=== PATIENT | female | born 1935 | race Caucasian/White ===

== ENCOUNTER 2016-12-05 12:34 | Emergency (ER) | payer MEDICARE ==
[~2016-12-05] VITALS: Ht 157.5 cm; Wt 150.0 kg
[~2016-12-05 12:34] MED LIST: ACET-1890 PO; MAGN400C PO; METO50TA7 PO; MULT-321 PO; QUET25TA PO; UBID1CAP52 PO; WARF2TAB7 PO
[2016-12-05 12:51] VITALS: BP 191/81; PULSE 80; RESP 20; O2SAT 97
--- NOTE | 2016-12-05 13:17 | ED.REPORT ---
HPI-Trauma Minor / Fall Date of Service Dec 05, 2016 ED Provider: Ting Rouse MD 81 year old female anticoagulated on warfarin with a history of CVA,atrial fibrillation, CAD, and HTN presents to the ER via EMS from [facility] due back pain status post mechanical ground level fall onto her carpeted floor just prior to arrival. She states that she had just grabbed some underwear out of her dresser and fell while she was transferring to her bed to get dressed. Immediately after the fall she found that she was unable to ambulate or call for help. found the patient shortly after and called EMS. Patient endorses head strike during the fall, and states that she struck her back on "something" as well, though she denies any LOC or neck pain. History of "balance problems", and she suspects this is the cause for her fall today. She is ambulatory with a walker or cane. Nursing Notes Stated Complaint: GLF Chief Complaint: Multiple Trauma/Fall Nursing Notes Reviewed: Yes Allergies: Coded Allergies: simvastatin (Verified Allergy, Severe, dizziness,ache all over, 10/14/14) Does not want any statins [place] (Verified Allergy, Mild, plugged nose and sneezing, ) Scheduled Magnesium Oxide (Magnesium) 400 Mg Capsule 400 MG PO DAILY Metoprolol Succinate ER (Toprol XL) 50 Mg Tablet.er 50 MG PO BID Multivit with Calcium,Iron,Min (Maximum Daily Multivitamin) 1 Each Tablet 1 EACH PO DAILY Ubidecarenone/Vit E Acetate (Co Q-10 100 mg Softgel) 1 Each Capsule 1 EACH PO DAILY Warfarin Sodium (Warfarin Sodium) 2 Mg Tablet 2 MG PO DAILY Scheduled PRN Acetaminophen (Tylenol) 325 Mg Tablet 325-975 MG PO Q6 PRN PRN For Pain Quetiapine Fumarate (Seroquel) 25 Mg Tablet 12.5 MG PO HS PRN PRN For Sleep General Time Seen by MD: 13:12 Chief Complaint Fall, Other (Back Pain) Hx Obtained From: Patient Arrived By: Ambulance Onset Occurred: Just prior to arrival Symptom Duration: Since onset Caused by: Accidental, Fall on ground Context: Occurred at: Home injury Associated with: Denies: Headache, Loss of consciousness, Neck pain Pertinent Negative: Pt denies other symptoms Similar Sx Previous: No Past Medical History Past Medical History Notes: Echo from july 2014 EF 60% septal wall thickening without obstructive component. Past Medical History PVD with L superficial femoral artery angioplasty Osteoarthritis with knee arthroplasty Reports: Coronary artery disease, Hypertension, Stroke Reports: Atrial fibrillation Smoking History Former Smoker Social History Other Social History: , Lives in group home Ambulatory Status Walker Review of Systems Constitutional: Denies: Chills, Fever Respiratory: Denies: Non-productive cough, Shortness of breath Musculoskeletal: Reports: Back pain, Denies: Extremity pain, Neck pain, Thoracic pain Neurologic: Denies: Change LOC, Headache, Syncope Complete sys rev & neg: except as marked. Physical Exam Initial Vital Signs Vital Signs (First) Date Time Temp Pulse Resp B/P Pulse Ox O2 Delivery O2 Flow Rate FiO2 12/05/16 12:51 36.5 80 20 191/81 97 Room Air Initial VS: Reviewed Head / Eyes: Atraumatic, Normocephalic Skin: Warm, Dry, No cyanosis Neurologic: Alert, Oriented, Nonfocal Psychiatric: Mood/affect normal, Behavior normal, Normal thought content General/Constitutional: Awake, Alert, Well developed, Well nourished Neck: Atraumatic, Supple, Full range of motion, No swelling, Non-tender, No midline vertebral tend Respiratory / Chest: Breath sounds NL, Breath sounds = bilat, No respiratory distress, No rales, No rhonchi, No wheezing, No chest tenderness, No chest wall deformity, No crepitus Cardiovascular: Heart rate NL, Regular rhythm, Heart sounds NL, Cap refill not delayed, Peripheral circulation NL Back: Atraumatic, Inspection NL, Painless range of motion, Non-tender, No midline vertebral tend, No CVA tenderness Upper Extremity / MS: Atraumatic, Inspection NL, Full range of motion, No swelling, Non-tender, No erythema, No deformity, Neurologic intact, Vascular intact Lower Extremity / Pelvis / MS: Full range of motion, Neurologic intact, Vascular intact Lower Ext Brief Normals: Hip R exam normal, Hip L exam normal Tender Left iliac and ischium. Legs are equal length. Able to lift both legs off the bed without pain. Interpretation & Diagnostics Lab Results Interpretation Result Diagram: 12/05/16 1400 12/05/16 1400 Test 12/05/16 14:00 White Blood Count 8.6th/mm3 (3.8-10.1) Red Blood Count 3.84mil/mm3 (3.90-5.20) Hemoglobin 12.0g/dL (12.0-15.6) Hematocrit 36.5% (35.0-46.0) Mean Corpuscular Volume 95.1fL (81-100) Mean Corpuscular Hemoglobin 31.3pg (27.0-35.0) Mean Corpuscular Hemoglobin Concent 32.9% (32.0-37.0) Red Cell Distribution Width 12.7% (12.3-15.4) Platelet Count 169bil/L (150-400) Neutrophils (%) (Auto) 79.0% (40-74) Lymphocytes (%) (Auto) 13.7% (14-46) Monocytes (%) (Auto) 5.5% (4-12) Eosinophils (%) (Auto) 0.9% (0-5) Basophils (%) (Auto) 0.1% (0-3) Prothrombin Time 34.3sec (8.1-12.5) Prothromb Time International Ratio 3.13ratio Sodium Level 138mEq/L (134-144) Potassium Level 4.2mEq/L (3.5-5.2) Chloride Level 101mEq/L (97-108) Carbon Dioxide Level 24mmol/L (18-29) Blood Urea Nitrogen 41mg/dL (8-27) Creatinine 1.00mg/dL (0.57-1.00) Estimat Glomerular Filtration Rate 76mL/min (>59) Glucose Level 105mg/dL (60-99) Calcium Level 9.4mg/dL (8.5-10.1) Total Bilirubin 0.4mg/dL (0.0-1.2) Aspartate Amino Transf (AST/SGOT) 22U/L (0-50) Alanine Aminotransferase (ALT/SGPT) 14U/L (0-32) Alkaline Phosphatase 72U/L (25-165) Total Protein 7.0g/dL (6.4-8.4) Albumin 3.8g/dL (3.4-5.0) X-Ray Interpretation Xray Interpretation: IMPRESSION: 1. No acute bony injuries of the left hip region. If there is persistent clinical suspicion for occult fracture, consider further evaluation with noncontrast bony pelvis MRI or CT. 2. Several calcified uterine fibroids as before. Dictated by: Nick Pozo M.D. on 12/05/2016 at 14:04 Approved by: Nick Pozo M.D. on 12/05/2016 at 14:06 X-Ray Ordered: Pelvis, Hip left Interpretation / Wet Read by: Interpret - Radiologist CT Head Interpretation IMPRESSION: 1. No acute intracranial hemorrhage. 2. Old right frontal/basal ganglia infarct with additional chronic small vessel ischemic changes. 3. Moderate parenchymal volume loss. The degree of ventricular prominence it does raise the suspicion for possible normal pressure hydrocephalus and clinical correlation is recommended. Dictated by: Blayne Mixon M.D. on 12/05/2016 at 12:55 Approved by: Blayne Mixon M.D. on 12/05/2016 at 12:58 Study: Head CT no contrast Interpretation / Wet Read by: Interpret - Radiologist Re-Eval/Medical Decision Med Decision/Clinical Course Mechanical fall earlier today. Hit her left buttock/hip and hit her head on the way down. She is anticoagulated. After evaluation in the emergency room there is some concern for pelvic ring fracture. X-rays are unremarkable. There is no spinal tenderness to suggest compression fracture. She is able to ambulate prior to discharge from the emergency room. Brain CT was done because of the head trauma and anticoagulation and there is no evidence of bleeding. Source of Hx: Old records Counseled Regarding: Diagnosis, Lab results Discharge & Departure Impression: Primary Impression: Fall Additional Impressions: Hip pain Low back pain Anticoagulated on Coumadin A-fib Ruled Out: Syncope, Compression fracture, Hip fracture Discharge Condition All VS Reviewed: Yes Condition: Stable Additional Instructions: I am so happy to report that you do not have any bleeding in your head, you do not have any compression fractures, you did not break your hip, and did not break your pelvis. You did fall and landed quite hard and you are going to be quite tender. It is okay to use Tylenol to help with this. You are already taking care to try and avoid falls, please continue. Thank you for letting me evaluate you today. Referrals: Samm Granda DO (PCP) Scribe Attestation Portions of this note were transcribed by Scott Coates. I, Dr. Rouse, personally performed the history, physical exam and medical decision-making; I reviewed and confirmed the accuracy of the information in the transcribed note. Signed by: Shaye Jo, 12/05/2016 at 15:19 copies to: Samm Granda Shawna L MD Dec 05, 2016 13:17 SCOTT COATES Dec 05, 2016 13:26
--- NOTE | 2016-12-05 13:59 | DRSVH ---
PROCEDURE: CT BRAIN WITHOUT CONTRAST ([id number]) INDICATIONS: fall, anticoagulated TECHNIQUE: Noncontrast 4.5 mm thick angled axial sections acquired from the foramen magnum to the vertex, with c oronal reformats. COMPARISON: [facility], CT, BRAIN W/O CONTRAST, 10/14/2014, 14:31. FINDINGS: Image quality: Diagnostic. Brain: There is no acute intra-axial or extra-axial hemorrhage. No extra-axial fluid collection is i dentified. There is no midline shift or mass effect. The orbits are grossly unremarkable. No large areas of diffusely decreased attenuation are evident within the brain to suggest diffuse cer ebral edema. 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 Additional areas of nonspecific white matter changes are present. The ventricles and cortical sulci are moderately prominent, particularly involving the lateral ventri cles and the 3rd ventricle. Bones: Calvarium and visualized facial bones are grossly intact. The imaged paranasal sinuses and m astoid air cells are clear. IMPRESSION: 1. No acute intracranial hemorrhage. 2. Old right frontal/basal ganglia infarct with additional chronic small vessel ischemic changes. 3. Moderate parenchymal volume loss. The degree of ventricular prominence it does raise the suspici on for possible normal pressure hydrocephalus and clinical correlation is recommended. Dictated by: Blayne Mixon M.D. on 12/05/2016 at 12:55 Approved by: Blayne Mixon M.D. on 12/05/2016 at 12:58
--- NOTE | 2016-12-05 14:07 | DRSVH ---
PROCEDURE: X-RAY PELVIS W/LAT HIP (LT) ([id number]) INDICATIONS: 81 year-old female with left hip region pain after fall. TECHNIQUE: AP pelvis with lateral view(s) of the left hip(s). COMPARISON: [facility], , HIP COMP MIN 2VW (LT), 09/07/2013, 12:53. FINDINGS: Bones: No fractures or dislocations. Pelvic ring appears intact. No suspicious bony lesions. Soft tissues: The visualized bowel gas pattern is normal. Several sizable calcified uterine fibroids are again noted. IMPRESSION: 1. No acute bony injuries of the left hip region. If there is persistent clinical suspicion for occul t fracture, consider further evaluation with noncontrast bony pelvis MRI or CT. 2. Several calcified uterine fibroids as before. Dictated by: Nick Pozo M.D. on 12/05/2016 at 14:04 Approved by: Nick Pozo M.D. on 12/05/2016 at 14:06
[2016-12-05 14:10] LABS: BASOPHILS % (AUTO) 0.1 % (0-3); EOSINOPHILS % (AUTO) 0.9 % (0-5); MONOCYTES % (AUTO) 5.5 % (4-12); Mean Corpuscular Hemoglobin 31.3 pg (27.0-35.0); Mean Corpuscular Volume 95.1 fL (81-100); Platelet Count 169 bil/L (150-400)
[2016-12-05 14:25] LABS: INR 3.13 ratio
== END 2016-12-05 17:30 | disposition home or self-care (01) ==
LOC: SED 12:34 → EDBD 12:34 → EDUNIT# 12:34 → SED 17:30
DX: M25.552 Pain in left hip (principal); M54.5 Low back pain; W18.39XA Other fall on same level, initial encounter; Y93.89 Activity, other specified; Y92.019 Unspecified place in single-family (private) house as the place of occurrence of the external cause; Y99.8 Other external cause status; I11.0 Hypertensive heart disease with heart failure; I48.91 Unspecified atrial fibrillation; I25.10 Atherosclerotic heart disease of native coronary artery without angina pectoris; Z86.73 Personal history of transient ischemic attack (TIA), and cerebral infarction without residual deficits; Z79.01 Long term (current) use of anticoagulants; Z87.891 Personal history of nicotine dependence; Z88.8 Allergy status to other drugs, medicaments and biological substances

== ENCOUNTER 2016-12-17 13:33 | Emergency (ER) | payer MEDICARE ==
[~2016-12-17] VITALS: Ht 157.5 cm; Wt 68.2 kg
[2016-12-17 13:48] VITALS: BP 174/77; PULSE 105; RESP 18; O2SAT 98
--- NOTE | 2016-12-17 15:51 | ED.REPORT ---
HPI-Trauma Minor / Fall Date of Service Dec 17, 2016 ED Provider: Peter Kelly MD Patient is an 81 year old female on Coumadin who presents to the ED via EMS complaining of L shoulder pain onset today. She was reaching up and grabbing a bar to lift herself off of the toilet when she felt a "pop" in her L shoulder. Associated symptoms include back pain s/p a glf one week ago. She was seen after her fall in the ED and had a negative workup. She denies new numbness, weakness, tingling, incontinence, or any other symptoms. Nursing Notes Stated Complaint: BACK PAIN Chief Complaint: Back Pain or Injury Nursing Notes Reviewed: Yes Allergies: Coded Allergies: simvastatin (Verified Allergy, Severe, dizziness,ache all over, 10/14/14) Does not want any statins [place] (Verified Allergy, Mild, plugged nose and sneezing, ) Scheduled Magnesium Oxide (Magnesium) 400 Mg Capsule 400 MG PO DAILY Metoprolol Succinate ER (Toprol XL) 50 Mg Tablet.er 50 MG PO BID Multivit with Calcium,Iron,Min (Maximum Daily Multivitamin) 1 Each Tablet 1 EACH PO DAILY Ubidecarenone/Vit E Acetate (Co Q-10 100 mg Softgel) 1 Each Capsule 1 EACH PO DAILY Warfarin Sodium (Warfarin Sodium) 2 Mg Tablet 2 MG PO DAILY Scheduled PRN Acetaminophen (Tylenol) 325 Mg Tablet 325-975 MG PO Q6 PRN PRN For Pain Docusate Sodium (Docusate Sodium) 250 Mg Capsule 250 MG PO BID PRN PRN For Constipation Hydrocodone-Acetaminophen 5-325 mg (Hydrocodone-Acetaminophen 5-325 mg) 1 Each Tablet 1 TABLET PO Q4H PRN PRN For Pain Quetiapine Fumarate (Seroquel) 25 Mg Tablet 12.5 MG PO HS PRN PRN For Sleep General Time Seen by MD: 15:50 Chief Complaint Other (L shoulder pain) Hx Obtained From: Patient Arrived By: Ambulance Recent Healthcare: Recent doctor visit Past Medical History Past Medical History Notes: Echo from july 2014 EF 60% septal wall thickening without obstructive component. Past Medical History PVD with L superficial femoral artery angioplasty Osteoarthritis with knee arthroplasty Reports: Coronary artery disease, Hypertension, Stroke (X2 with L side deficits) Reports: Atrial fibrillation Past Surgical History Stent placement Hernia repair Fx in L leg Reports: Cataract surgery Smoking History Former Smoker Social History Other Social History: , Lives in [place] [facility] Ambulatory Status Walker Review of Systems Review of Systems Note: -tingling Musculoskeletal: Reports: Back pain, Joint pain (L shoulder ) Neurologic: Denies: Numbness, Weakness Complete sys rev & neg: except as marked. Physical Exam Initial Vital Signs Vital Signs (First) Date Time Temp Pulse Resp B/P Pulse Ox O2 Delivery O2 Flow Rate FiO2 12/17/16 13:48 36.7 105 18 174/77 98 Room Air Initial VS: Reviewed Head / Eyes: Atraumatic, Normocephalic Respiratory: No respiratory distress Abdomen / GI: Soft, Non-tender Skin: Warm, Dry Neurologic: Alert, Oriented, Nonfocal Psychiatric: Mood/affect normal, Behavior normal, Normal thought content General/Constitutional: Awake, Alert, Well developed Neck: Atraumatic, Supple Back: Inspection NL, Non-tender Upper Extremity / MS: No deformity, Neurologic intact, Vascular intact Reduced ROM of L shoulder secondary to pain Interpretation & Diagnostics Lab Results Interpretation Test 12/17/16 16:33 Prothrombin Time 23.7sec (8.1-12.5) Prothromb Time International Ratio 2.18ratio Hold [place] Top Tube Received (Received) X-Ray Interpretation Xray Interpretation: IMPRESSION: Left glenohumeral joint degeneration, without acute bony injuries. Dictated by: Nick Pozo M.D. on 12/17/2016 at 17:13 Approved by: Nick Pozo M.D. on 12/17/2016 at 17:14 Study Performed: L shoulder, 2 view X-Ray Ordered: Shoulder left Interpretation / Wet Read by: Interpret - Radiologist Re-Eval/Medical Decision Med Decision/Clinical Course Left shoulder pain after trying to pull herself up off of the commode. There is no fracture present. As a complaint of back pain after a fall about 10 days ago, the spine has not been imaged however I do not find any tenderness in the thoracic or lumbar spine. She was placed in a sling with instructions to get her arm out of the sling as soon as possible. She is anticoagulated and therapeutic on her anticoagulation. Patient is an assisted living setting and will be discharged with a prescription for a wheelchair. Re-Evaluation/Progress : Time of Eval: 18:57 Re-Evaluation/Progress Note: Rechecked patient. Discussed imaging results. Discussed plan for discharge. Patient understands and agrees with plan. All questions addressed at this time. Counseled Regarding: Diagnosis, Lab results, Need for follow-up, When/why to return to ED Discharge & Departure Impression: Primary Impression: Left shoulder pain Chronicity: acute Qualified Code: M25.512 - Pain in left shoulder Disposition: Home Additional Instructions: Emergency Department evaluation included interview and examination, past records were reviewed. A left shoulder x-ray was done. No acute bony injury to the left shoulder is identified. There is significant chronic changes consistent with aging. Keep shoulder in sling, initially but be certain to get arm out of sling and moving within 5 days for gentle range of motion. Ice to sore areas, apply ice for 10 minutes keep ice covered with a cloth repeat this 4 -5 times a day. May use hydrocodone/APAP one to 2 every 4 hours as needed for pain, be vigilant about constipation, use fiber and/or docusate sodium as needed to keep bowels moving. Follow-up with primary care tomorrow as planned. Call and make an appointment to be seen by orthopedics doctor regarding any shoulder pain. Referrals: Samm Granda DO (PCP) Ryan Figueroa MD Scribe Attestation Portions of this note were transcribed by Lizzette Guadarrama. I, Dr. Kelly personally performed the history, physical exam and medical decision-making; I reviewed and confirmed the accuracy of the information in the transcribed note. Signed by: Lizzette Guadarrama 12/17/2016 2018 copies to: Samm Granda Donald L MD Dec 17, 2016 15:51 LIZZETTE GUADARRAMA Dec 17, 2016 16:16
[2016-12-17] MEDS ORDERED: oxyCODONE-Acetamin 5-325 mg Tablet PO ONE ×2 (16:20→20:10)
[2016-12-17 16:26] VITALS: BP 156/79; PULSE 80; RESP 16; O2SAT 96
[2016-12-17 16:59] LABS: INR 2.18 ratio
--- NOTE | 2016-12-17 17:21 | DRSVH ---
PROCEDURE: X-RAY LEFT SHOULDER, MINIMUM TWO VIEWS ([id number]) INDICATIONS: 81 year-old female with left shoulder pain. TECHNIQUE: 3 views of the shoulder were acquired. COMPARISON: None. FINDINGS: Bones: No fractures or dislocations. There is glenohumeral joint narrowing. No suspicious bony lesi ons. Visualized ribs appear intact. Soft tissues: No suspicious soft tissue calcifications. There is cardiomegaly. IMPRESSION: Left glenohumeral joint degeneration, without acute bony injuries. Dictated by: Nick Pozo M.D. on 12/17/2016 at 17:13 Approved by: Nick Pozo M.D. on 12/17/2016 at 17:14
[2016-12-17 18:22] VITALS: BP 134/75; PULSE 91; RESP 15; O2SAT 95
[2016-12-17 19:23] VITALS: BP 144/66; PULSE 88; RESP 15; O2SAT 95
[2016-12-17] MEDS ORDERED: DOCU250C2 PO (20:16)
[2016-12-17] MEDS ORDERED: HYDR-4003 PO (20:16)
[2016-12-17 20:40] VITALS: BP 144/66; PULSE 88; RESP 15; O2SAT 95
== END 2016-12-17 20:41 | disposition home or self-care (01) ==
LOC: EDBD 13:33 → SED 13:33
DX: M25.512 Pain in left shoulder (principal); I25.10 Atherosclerotic heart disease of native coronary artery without angina pectoris; I10 Essential (primary) hypertension; Z86.73 Personal history of transient ischemic attack (TIA), and cerebral infarction without residual deficits; X50.0XXA Overexertion from strenuous movement or load, initial encounter; Y93.89 Activity, other specified; Y92.89 Other specified places as the place of occurrence of the external cause; Y99.8 Other external cause status; Z91.81 History of falling; Z79.01 Long term (current) use of anticoagulants; Z87.891 Personal history of nicotine dependence; Z88.8 Allergy status to other drugs, medicaments and biological substances